=== PATIENT | male | born 1975 ===

== ENCOUNTER 2024-06-28 10:01 | Outpatient (CLI) | payer OTHER ==
[2024-07-01] MEDS ORDERED: VITAMIN D-40010 MCG PO (11:06)
== END 2024-06-28 10:10 | disposition home or self-care (01) ==
LOC: RAD 10:01
PROVIDERS: ATTEND Specialist
DX: K40.90 Unilateral inguinal hernia, without obstruction or gangrene, not specified as recurrent (principal)

== ENCOUNTER 2024-07-09 06:10 | Day surgery (SDC) | payer OTHER ==
[~2024-07-09 06:10] MED LIST: VITAMIN D-40010 MCG PO
[2024-07-09] MEDS ORDERED: CEFAZOLIN SODIUM 1,000 MG VIAL IV ONE (12:15)
[2024-07-09] MEDS ORDERED: CEFAZOLIN SODIUM 1,000 MG VIAL IV SCH (14:15)
[2024-07-09] MEDS ORDERED: FAMOTIDINE/PF 20 MG/10 ML SYRINGE IV SCH (14:15)
[2024-07-09] MEDS ORDERED: MORPHINE SULFATE 4 MG/ML VIAL IV ONE ×2 (14:20→14:50)
[2024-07-09] MEDS ORDERED: MEPERIDINE HCL 25 MG/ML AMPUL IV ONE (16:45)
== END 2024-07-09 17:30 | disposition home or self-care (01) ==
LOC: CIR.AMB 06:10
PROVIDERS: ATTEND Specialist
DX: K40.90 Unilateral inguinal hernia, without obstruction or gangrene, not specified as recurrent (principal)